=== PATIENT | female | born 1985 | race Caucasian/White ===

== ENCOUNTER 2024-10-09 11:42 | Emergency (ER) | payer SELFPAY ==
[2024-10-09 11:52] VITALS: BP 165/119
[2024-10-09 12:40] VITALS: BMI 32.6
[2024-10-09 13:34] VITALS: BP 157/85
[2024-10-09] MEDS: TYLENOL 650 MG PO (13:58)
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
[2024-10-09] MEDS: ZOFRAN ODT (ORALLY DISINTEGRATING) 4 MG PO (14:18)
[2024-10-09] MEDS: ISENTRESS 400 MG PO (14:37)
[2024-10-09] MEDS: VIBRAMYCIN 100 MG PO (14:37)
[2024-10-09] MEDS: TRUVADA TABLET 1 TABLET PO (14:37)
[2024-10-09] MEDS: XYLOCAINE-MPF 1% VIAL 10 MG INJ (15:32)
[2024-10-09] MEDS: ROCEPHIN 500 MG IM (15:32)
[2024-10-09 16:11] LABS: HCG, Serum Qualitative Screen Negative
[2024-10-09 16:18] LABS: ALT (SGPT) 16 U/L (0-35); AST (SGOT) 19 U/L (14-36); Albumin 4.2 g/dl (3.5-5.0); Alkaline Phosphatase 78 U/L (38-126); Blood Urea Nitrogen 13 mg/dl (7-17); Calcium 9.5 mg/dl (8.4-10.2); Carbon Dioxide 22 mmol/L (22-30); Chloride 110 mmol/L (98-107); Estimated Creatinine Clearance > 125 ml/min; Glucose 155 mg/dl (70-99); Potassium 3.8 mmol/L (3.5-5.1); Sodium 139 mmol/L (135-145); Total Protein 6.4 g/dl (6.3-8.2); eGFR > 60.00
[2024-10-09 17:55] VITALS: BP 156/87
[2024-10-09] MEDS: FLAGYL 500 MG PO (17:59)
== END 2024-10-09 18:07 | disposition home or self-care (01) ==
LOC: EMR 11:42
PROVIDERS: EMERGENCY PHYSICIAN Emergency Medicine
DX: T74.21XA Adult sexual abuse, confirmed, initial encounter (principal); S20.02XA Contusion of left breast, initial encounter; Y92.9 Unspecified place or not applicable
CPT/HCPCS: 99283; 96372; 80053; 84703; 87389; 87491; 87591